=== PATIENT | female | born 1955 | race African-American/Black ===

== ENCOUNTER 2017-05-04 22:40 | Observation (INO) | payer MEDICARE ==
[2017-05-04] MEDS ORDERED: Milk Of Magnesia 30 ML UDCUP ONE (23:10)
[2017-05-04] MEDS ORDERED: Furosemide 40 MG/4 ML VIAL ONE (23:10)
[2017-05-04] MEDS ORDERED: Lidocaine Viscous Sol 2% 15 ml UD Cup ONE (23:10)
[2017-05-04 23:36] LABS: Troponin I Less than 0.010 ng/mL (< 0.028)
[2017-05-04 23:45] LABS: #Eosinphils 0.2 thou/uL (0.0-0.7); #Lymphocytes 3.3 thou/uL (1.20-3.40); #Monocytes 1.1 thou/uL (0.11-0.59); #Neutrophils 6.2 thou/uL (1.40-6.50); %Basophils 0.3 % (0.0-1.0); %Eosinophils 1.4 % (0.0-10.0); %Lymphocytes 30.9 % (21.0-51.0); %Monocytes 10.1 % (0.0-10.0); Hematocrit 41.1 % (36.0-47.0); Red Blood Cell (RBC) Count 4.91 mill/uL (4.20-5.40); White Blood Cell (WBC) Count 10.8 thou/uL (4.8-10.8)
[2017-05-05] MEDS ORDERED: Nitroglycerin 0.4 MG TAB (25 Tab Bottle) ONE (00:01)
[2017-05-05 00:19] LABS: Calcium 9.5 mg/dL (7.8-10.44); Chloride 99 mmol/L (98-107)
[2017-05-05 00:21] LABS: Globulin 3.7 g/dL (2.4-3.5); Protein, Total 7.7 g/dL (6.0-8.3)
[2017-05-05 00:22] LABS: Anion Gap 16 mmol/L (10-20); Bilirubin, Total 0.3 mg/dL (0.2-1.2); Carbon Dioxide 30 mmol/L (23-31)
[2017-05-05 00:23] LABS: Alkaline Phosphatase 80 U/L (40-150)
[2017-05-05 00:24] LABS: BUN (Urea Nitrogen) 7 mg/dL (9.8-20.1); Calc. Creatinine Clearance 0 mL/min (70-130); Estimated GFR-MDRD Greater than 90
[2017-05-05 00:25] LABS: AST (SGOT) 12 U/L (5-34)
[2017-05-05 00:26] LABS: ALT (SGPT) 10 U/L (8-55)
[2017-05-05 01:15] VITALS: BMI 49.7
[2017-05-05 02:22] LABS: Troponin I 0.013 ng/mL (< 0.028)
[2017-05-05 05:24] LABS: Troponin I 0.015 ng/mL (< 0.028)
[2017-05-05] MEDS: Lidocaine 2% Viscous Solution 20 ML, Aluminum & Magnesium Hydroxide 30 ML, Donnatal Eli... SSW SCH ×6 (05:36→09:51)
[2017-05-05] MEDS ORDERED: Mag-Al 1200 mg/1200 mg/30 ML UDCUP PO PRN (08:36)
[2017-05-05] MEDS ORDERED: Bisacodyl 5 MG TAB PO PRN (08:36)
[2017-05-05] MEDS ORDERED: Nitroglycerin 0.4 MG TAB (25 Tab Bottle) SL PRN (08:36)
[2017-05-05] MEDS ORDERED: Senokot 8.6 MG TAB PO PRN (08:36)
[2017-05-05] MEDS ORDERED: traMADol HCl 50 MG TAB PO PRN (08:36)
[2017-05-05] MEDS ORDERED: Acetaminophen 325 MG TAB PO PRN (08:36)
[2017-05-05] MEDS ORDERED: Loratadine 10 MG TAB PO PRN (08:36)
[2017-05-05] MEDS ORDERED: Calcium Carbonate 500 MG ChewTAB PO PRN (08:36)
[2017-05-05] MEDS ORDERED: Benzonatate 100 MG CAP PO PRN (08:36)
[2017-05-05] MEDS ORDERED: cloNIDine HCl 0.1 MG TAB PO PRN (08:36)
[2017-05-05] MEDS ORDERED: Ondansetron HCl/PF 4 MG/2 ML Vial IVP PRN (08:36)
[2017-05-05] MEDS ORDERED: Lorazepam 1 MG TAB PO PRN (08:36)
[2017-05-05] MEDS ORDERED: Hydrochlorothiazide 25 MG TAB PO SCH (09:00)
[2017-05-05] MEDS ORDERED: Furosemide 20 MG TAB PO SCH (09:00)
[2017-05-05] MEDS ORDERED: Lisinopril 10 MG TAB PO SCH (09:00)
--- NOTE | 2017-05-05 09:48 | RAD ---
CHEST ONE VIEW: History: Dyspnea. Pulmonary edema. Comparison: 02-16-10 FINDINGS: Cardiac silhouette is magnified by projection. Pulmonary vasculature is unremarkable. Mediastinum is midline with aortic calcification. There is no lobar consolidation or evidence of pneumothorax. IMPRESSION: 1. No active cardiopulmonary abnormalities are demonstrated. 2. Atherosclerosis. POS: [facility]
[2017-05-05] MEDS ORDERED: NIFEdipine XL 60 MG TAB PO ONE (10:25)
[2017-05-05] MEDS ORDERED: NIFEdipine XL 30 MG TAB PO SCH (11:15)
[2017-05-05] MEDS ORDERED: Potassium Chloride 20 MEQ TAB PO SCH (11:30)
--- NOTE | 2017-05-05 13:02 | CON ---
DATE OF CONSULTATION: 05/05/2017 REQUESTING PHYSICIAN: Dr. Rivera REASON FOR CONSULTATION: Hypertension. REASON FOR ADMISSION: Chest pain. HISTORY OF PRESENT ILLNESS: This 61-year-old female with history of hypertension, osteoarthritis, came to the hospital with chest pain and was found to have hypertension. Creatinine is normal. Nephrology was consulted for uncontrolled hypertension. Blood pressure was in 200s and 190s, no fever or chills. No chest pain, palpitation. No skin rash. PAST MEDICAL HISTORY: Positive for hypertension, osteoarthritis. PAST SURGICAL HISTORY: Hysterectomy. HOME MEDICATIONS: Amlodipine, furosemide, tramadol, lisinopril, hydrochlorothiazide. ALLERGIES: ASPIRIN. SOCIAL HISTORY: No smoking, alcohol or illicit drug abuse. FAMILY HISTORY: No history of any kidney disease. REVIEW OF SYSTEMS: The following complete review of systems was negative, unless otherwise mentioned in the HPI or below: Constitutional: Weight loss or gain, ability to conduct usual activities. Skin: Rash, itching. Eyes: Double vision, pain. ENT/Mouth: Nose bleeding, neck stiffness, pain, tenderness. Cardiovascular: Palpitations, dyspnea on exertion, orthopnea. Respiratory: Shortness of breath, wheezing, cough, hemoptysis, fever or night sweats. Gastrointestinal: Poor appetite, abdominal pain, heartburn, nausea, vomiting, constipation, or diarrhea. Genitourinary: Urgency, frequency, dysuria, nocturia. Musculoskeletal: Pain, swelling. Neurologic/Psychiatric: Anxiety, depression. Allergy/Immunologic: Skin rash, bleeding tendency. PHYSICAL EXAMINATION: GENERAL: This is an obese female in no apparent distress. VITAL SIGNS: Temperature 99.3, pulse 80, respiratory 20, blood pressure 223/105. HEENT: Atraumatic, normocephalic. Oral mucosa is moist. NECK: Supple, no masses. HEART: S1, S2 heard. Rate and rhythm regular. RESPIRATORY: Clear. ABDOMEN: Soft. MUSCULOSKELETAL: No tenderness or edema. DERMATOLOGIC: No skin rash. NEUROLOGIC: Alert and awake. PSYCHIATRIC: Mood and affect normal. LABS: Hemoglobin is 13.0, potassium 3.2, BUN 7, creatinine 0.7. ASSESSMENT AND PLAN: 1. Hypertension, resistant hypertension, currently on multiple medications. Patient reports that h er blood pressure is controlled at home she takes it once a week. Her daughter was also at the beds far[facility] and reports that her blood pressure okay, was elevated just here. She denies any anxiety. The plan is to continue her home medications and monitor blood pressure. 2. Hypokalemia, most likely from diuresis. 3. Obesity, counseled. 4. Edema, controlled. Plan is to change amlodipine to Procardia, she reports edema with amlodipine. She is on Lasix, too. Continue home medications. We will change amlodipine to Procardia and closely monitor blood press ure, limit salt in the diet. We will follow. Thank you for the consultation.
[2017-05-05] MEDS: Enoxaparin Sodium 40 MG/0.4 ML SYRINGE SC SCH (14:27)
[2017-05-05] MEDS: Bupropion 100 MG SR TAB PO SCH (14:28)
[2017-05-05] MEDS ORDERED: NIFEdipine XL 60 MG TAB PO SCH (14:30)
--- NOTE | 2017-05-05 14:45 | HP ---
DATE OF ADMISSION: 05/05/2017 PRIMARY CARE PHYSICIAN: Dr. Larry. CHIEF COMPLAINT: Upper abdominal and lower chest pain in the center. HISTORY OF PRESENTING ILLNESS: Ms. Smith is a 61-year-old -Lao female with past me dical history of hypertension, who presented to the emergency room with the above-mentioned complain t. History is mainly obtained by the patient herself and the electronic medical records have been r eviewed. The patient was last seen by myself last year for complaints of uncontrolled hypertension. At that time, her medications were adjusted and she was also seen by stone breaker and renal workup was done, which was unremarkable. Today, the patient came to the emergency room complaining of feeling poorly for the last few days. She states she has been having some stomach upset with some vomiting, diarrhea, and abdominal pain f or the last day or so. She states that her stomach pain is not radiating up in her chest under her sternal edge. She also reports some burning and belching and some dry heaving with a little bit of vomiting. She denies any shortness of breath. She does feel intermittently hot and cold but denies any fevers. She denies any hematochezia or melena. She denies any dysuria, frequency or urgency. She presented to the ER with the symptoms and was found to be extremely hypertensive with blood pre ssure of 223/105. The patient reports that she is compliant with her lisinopril and hydrochlorothiazide, but has stopp ed taking all the other medications as told by her primary care physician. She reports that her blo od pressure is \\\\"okay\\\\" and when I asked her, she says it is normally around systolic in the 150s. In the emergency room, her initial workup included a 12-lead EKG, which did not show any arrhythmias . She had first degree AV block, left atrial enlargement and prolonged QT. No chest x-ray was done and no other imaging studies were done. She received aspirin, sublingual nitroglycerin, amlodipine , Lasix IV and GI cocktail and was sent to the floor for admission for \\\\"chest pain workup.\\\\" Her cardiac enzymes were drawn and have been negative x3. The rest of her blood work is rather unremar kable. She does have a low potassium at 3.2. PAST MEDICAL HISTORY: 1. Hypertension. 2. Morbid obesity. 3. Dyslipidemia. PAST SURGICAL HISTORY: Include right and left total knee replacement, hysterectomy, hernia repair. ALLERGIES: ASPIRIN. PERSONAL HISTORY/SOCIAL HISTORY: No history of drug, tobacco or alcohol abuse. FAMILY HISTORY: Mother at the age of 84 years. She had diabetes and hypertension. Father d of massive CVA at the age of 63 years. CURRENT HOME MEDICATIONS: Wellbutrin 100 mg daily, amlodipine 5 mg daily, Lasix 20 mg daily, lisino pril/hydrochlorothiazide 20/12.5 mg daily, tramadol as needed. The patient reports she is only azi ng lisinopril/hydrochlorothiazide at this time, which she has not taken for the last few days due to illness. REVIEW OF SYSTEMS: The following complete review of systems was negative, unless otherwise mention ed in the HPI or below: CONSTITUTIONAL: Weight loss or gain, ability to conduct usual activities. SKIN: Rash, itching. EYES: Double vision, pain. ENT/MOUTH: Nose bleeding, neck stiffness, pain, tenderness. CARDIOVASCULAR: Palpitations, dyspnea on exertion, orthopnea. RESPIRATORY: Shortness of breath, wheezing, cough, hemoptysis, fever or night sweats. GASTROINTESTINAL: Poor appetite, abdominal pain, heartburn, nausea, vomiting, constipation, or diar jessenia. GENITOURINARY: Urgency, frequency, dysuria, nocturia. MUSCULOSKELETAL: Pain, swelling. NEUROLOGIC/PSYCHIATRIC: Anxiety, depression. ALLERGY/IMMUNOLOGIC: Skin rash, bleeding tendency. LABORATORY DATA: CBC shows WBCs 10.8 with 37% neutrophils, hemoglobin 13, platelet 232. Serum chem istry showed potassium of 3.2. Troponin less than 0.010 and than 0.013 and than 0.015. Liver enzym es are within normal limits. Chest x-ray ordered by myself and is reviewed by myself. She has some evidence of atherosclerosis but no pulmonary consolidation or pulmonary vascular congestion. PHYSICAL EXAMINATION: VITAL SIGNS: Most recent vital signs include blood pressure 140/67, temperature 98.6, pulse of 79, respirations 16, saturating 96% on room air. GENERAL: No acute distress. She does appear somewhat uncomfortable due to the abdominal pain going into her chest. Otherwise, awake, alert, oriented x3. HEENT: Mucous membrane is moist and pink. No oropharyngeal exudate or erythema. Head is normoceph alic, atraumatic. Pupils equal, reactive to light and accommodation. Extraocular movements intact. NECK: Supple without any lymphadenopathy, JVD or bruit. CHEST: Clear to auscultation without any wheezing, rales or rhonchi. Rate and rhythm is regular wi thout any murmur, rubs or gallops. ABDOMEN: Soft, nontender, nondistended with positive bowel sounds. EXTREMITIES: Free of any cyanosis, clubbing, or edema. NEUROLOGIC: Nonfocal. SKIN: Free of any rashes or bruises. Feels warm and dry to touch. VASCULAR: +2 pedal pulses felt bilaterally. IMPRESSION AND PLAN: 1. Chest pain. Most likely, this is secondary to uncontrolled hypertension. Cardiac enzymes have been negative. EKG does not show any acute ST or T-wave changes to suggest acute coronary syndrome. The patient had an echocardiogram done in 2013, which showed normal systolic function. At this ti me, we will go ahead and repeat the echocardiogram, but I highly doubt the patient is suffering acut e coronary syndrome. She is tender to palpation in the upper epigastric and lower sternocostal saira on. At this time, I will go ahead and order CT aortic dissection protocol given the hypertension an d the pain. However, she is completely hemodynamically stable and it is clinically less likely. We will also order a CT of the abdomen and pelvis to rule out any abdominal causes of the pain. Most likely, she has gastritis from gastrointestinal illness. We will also check a lipase, though the liz peña's abdominal exam is rather benign and the probability of pancreatitis is rather low. We will also check a urinalysis to rule out urinary tract infection as a cause. 2. Uncontrolled hypertension and hypertensive urgency. At this time, she will be restarted on isabel nopril, but we will hold Lasix and hydrochlorothiazide given a propensity for hypokalemia [facility] and this admission also. We will reconsult Nephrology, Dr. Lara, who has seen her in the past. Echocardiogram has been ordered as above. Her medications will be adjusted and I have c ounseled her about the need to stay compliant with her medication even though she thinks that her bl ood pressure is well controlled. She will be monitored on telemetry unit. 3. Abdominal pain. We will check a CT scan of her abdomen and pelvis. Most likely, this is viral gastroenteritis. She has no recent use of antibiotics to think infectious causes like Clostridium d ifficile. 4. Hypokalemia. We will replete and recheck. Hold hydrochlorothiazide and Lasix for now. The pat ient is euvolemic. 5. Code status: FULL CODE. Heart healthy diet, walking program and p.r.n. medications. DISPOSITION: The patient is currently being admitted under observation status for chest pain, abdom inal pain, uncontrolled hypertension and hypertensive urgency. Further management will depend upon her clinical course.
[2017-05-05] MEDS ORDERED: Iopamidol 370 76% 100 ML VIAL ONE (15:00)
[2017-05-05 15:02] LABS: Bilirubin Negative (Negative); Blood, Urine Negative (Negative); Glucose, Urine (Dipstick) Negative (Negative); Ketone, Urine Negative (Negative); Nitrite Negative (Negative); Protein, Urine (Dipstick) Negative (Neg-Trace); Urobilinogen 0.2 mg/dL (0.2-1.0)
[2017-05-05 15:11] LABS: Bacteria/HPF Rare-Few HPF (None Seen); Hyaline Casts/LPF 0-3 HYALINE CAST LPF (0-3 Hyaline); RBC/HPF 0-3 HPF (0-3); Squamous Epithelial 0-3 HPF (0-3); WBC/HPF 0-3 HPF (0-3)
--- NOTE | 2017-05-05 15:58 | CT ---
CT AORTIC DISSECTION PROTOCOL: HISTORY: Chest pain. Hypertension. COMPARISON: None. TECHNIQUE: CT angiogram of the chest and abdomen performed after the intravenous administration of contrast. T hree-D rendering was provided. FINDINGS: A few foci of air trapping are noted throughout the lungs. There is a small nodule in the lateral s egment right lower lobe measuring under 6 mm. Calcified granuloma of the right hilum. No proximal segmental pulmonary arterial filling defect. Pulmonary trunk size upper limits of erich l. No aneurysm of the thoracic aorta nor dissection. No penetrating atherosclerotic ulcer. Abdominal aorta is also without dilatation. Heart size is enlarged. Moderate coronary artery calcifications. Small sliding hiatal hernia. There is cholelithiasis. Celiac trunk and superior mesenteric arteries are patent. The kidneys are unremarkable as well as t he adrenal glands. The liver is normal. No hydronephrosis. Visualized portion of the appendix appears normal. Mild low-grade submucosal edema of the ascending colon and transverse colon. Although incompletely evaluated, there appears to be a lipoma of the descending colon series 2, imag e 152. There appears to be a vessel coursing through this. Moderate to severe facet arthrosis throughout the lumbar spine. Moderate degenerative disk space di sease throughout the lumbar spine. IMPRESSION: 1. No aortic aneurysm or dissection. 2. Mild cardiomegaly and moderate atherosclerotic calcifications in the coronary arteries. 3. Pulmonary trunk size upper limits of normal with numerous areas of air trapping. 4. Cholelithiasis without cholecystitis. 5. Incidental node of likely a lipoma of the descending colon. Nonemergent GI followup recommended . 6. Mild submucosal edema in the ascending colon and also some of the transverse colon can be seen w ith colitis. This could be infectious or inflammatory. 7. Severe osteoarthritic disease of the lumbar spine. POS: [facility]
[2017-05-05] MEDS: HYDROcodone/Acetaminophen 5/325 mg Tablet PO PRN (19:37)
[2017-05-05 23:16] LABS: Troponin I Less than 0.010 ng/mL (< 0.028)
[2017-05-06 05:26] LABS: #Eosinphils 0.1 thou/uL (0.0-0.7); #Lymphocytes 2.4 thou/uL (1.20-3.40); #Monocytes 0.7 thou/uL (0.11-0.59); #Neutrophils 5.1 thou/uL (1.40-6.50); %Basophils 0.2 % (0.0-1.0); %Eosinophils 0.8 % (0.0-10.0); %Monocytes 8.8 % (0.0-10.0); Hematocrit 38.2 % (36.0-47.0); Mean Platelet Volume 7.5 fL (7.4-10.4); Red Blood Cell (RBC) Count 4.58 mill/uL (4.20-5.40); White Blood Cell (WBC) Count 8.4 thou/uL (4.8-10.8)
[2017-05-06 05:52] LABS: Anion Gap 14 mmol/L (10-20); BUN (Urea Nitrogen) 8 mg/dL (9.8-20.1); Calc. Creatinine Clearance 198 mL/min (70-130); Calcium 8.9 mg/dL (7.8-10.44); Carbon Dioxide 29 mmol/L (23-31); Chloride 97 mmol/L (98-107); Estimated GFR-MDRD Greater than 90
[2017-05-06] MEDS: Bupropion 100 MG SR TAB PO SCH (08:23)
[2017-05-06] MEDS: NIFEdipine XL 60 MG TAB PO SCH (08:24)
--- NOTE | 2017-05-06 09:03 | PRG ---
DATE OF CONSULTATION: 05/06/2017 SUBJECTIVE: Patient was seen and examined at bedside and overnight events noted. Patient denies an y shortness of breath or chest pain or palpitation. No history of nausea or vomiting or diarrhea or fever or chills or cramps. OBJECTIVE: GENERAL: This is a well-built female in no apparent distress. VITAL SIGNS: Temperature 98.7, pulse 72, respiratory rate 18, blood pressure 191/81 before the medi cation given. HEENT: Atraumatic, normocephalic. Oral mucosa is moist. NECK: Supple. CARDIOVASCULAR: S1 and S2 heard, rate and rhythm regular. RESPIRATORY: Clear to auscultation. GASTROINTESTINAL: Abdomen is soft. MUSCULOSKELETAL: No tenderness, no edema. DERMATOLOGIC: No skin rash. NEUROLOGIC: Alert and awake and oriented X3. No focal neurologic deficits. Moving all the extremi ties. PSYCHIATRIC: Mood and affect normal. LABORATORY DATA: Potassium is 3.5, BUN is 48, creatinine 0.7. ASSESSMENT AND PLAN: 1. Hypertension, seems like responding to Procardia. Blood pressure was high today. Before the me dications, I advised the nurse to recheck blood pressure after today morning dose and will follow. 2. Hyperkalemia better. Replace and monitor. 3. Obesity. 4. Edema, controlled. Plan is to continue to monitor blood pressure on current medications and we will adjust as needed.
--- NOTE | 2017-05-06 11:33 | PDOC.PN ---
- Subjective Encounter Start Date: 05/06/17 Encounter Start Time: 11:31 Subjective: still c/o abdominal pian going to lower chest -: nursing report 5 beats of V-tach up to HR 170.pt asymptomatic -: denies any SOB/palpitations - Objective MAR Reviewed: Yes Vital Signs & Weight: Vital Signs (12 hours) Temp Pulse Resp BP BP Pulse Ox 05/06/17 09:30 73 164/77 H 05/06/17 08:24 73 191/81 H 05/06/17 07:25 98.7 F 73 20 191/81 H 93 L 05/06/17 04:48 99.0 F 73 16 125/58 L 93 L 05/06/17 03:13 94 L 05/05/17 23:38 98.7 F 68 22 H 133/63 94 L Weight Admit Weight 336 lb 12.8 oz Weight 336 lb 12.8 oz I&O: 05/05/17 05/06/17 05/07/17 06:59 06:59 06:59 Intake Total 2310 120 Output Total 4135 150 Balance -1825 -30 Result Diagrams: 05/06/17 05:06 05/06/17 05:06 Radiology Reviewed by me: Yes (CT-no aortic dissection.mild colitis.cholelithiasis.no cholecystitis) Phys Exam - Physical Examination Constitutional: NAD HEENT: PERRLA, moist MMs, sclera anicteric, oral pharynx no lesions Neck: no nodes, no JVD, supple, full ROM Respiratory: no wheezing, no rales, no rhonchi, clear to auscultation bilateral Cardiovascular: RRR, no significant murmur Gastrointestinal: soft, non-tender, no distention, positive bowel sounds Musculoskeletal: no edema, pulses present Neurological: non-focal, normal sensation, moves all 4 limbs Psychiatric: normal affect, A&O x 3 Skin: no rash Dx/Plan (1) Hypertensive urgency Code(s): I16.0 - HYPERTENSIVE URGENCY Status: Acute (2) Abdominal pain Code(s): R10.9 - UNSPECIFIED ABDOMINAL PAIN Status: Acute Qualifiers: Abdominal location: epigastric Qualified Code(s): R10.13 - Epigastric pain (3) Chest pain Code(s): R07.9 - CHEST PAIN, UNSPECIFIED Status: Resolved Comment: naveen referred pain from Abdomen (4) Hypokalemia Code(s): E87.6 - HYPOKALEMIA Status: Resolved Comment: taken off of Diuretics (5) Obesity Code(s): E66.9 - OBESITY, UNSPECIFIED Status: Chronic Qualifiers: Obesity type: due to excess calories Obesity classification: adult class 3 (BMI >= 40) Body mass index: BMI 45.0-49.9 - Plan out of bed/ambulate, DVT proph w/SCDs cardiac enzymes negative.EKG w/o ACs chnages.Naveen HTN releated -: Will consult GS for need for lap titi. -: BP still high. add Hydralazine. may need BB if V-tach recurres. -: ECHO results pending. -: DC home if no GB Sx and BP better controlled * . Review of Systems - Review of Systems Constitutional: Malaise. negative: Fever, Chills, Sweats, Weakness, Other Respiratory: negative: Cough, Dry, Shortness of Breath, Hemoptysis, SOB with Excertion, Pleuritic Pain, Sputum, Wheezing Cardiovascular: negative: Chest Pain, Palpitations, Orthopnea, Paroxysmal Noc. Dyspnea, Edema, Light Headedness, Other Gastrointestinal: Abdominal Pain. negative: Nausea, Vomiting, Diarrhea, Constipation, Melena, Hematochezia, Other Genitourinary: negative: Dysuria, Frequency, Incontinence, Hematuria, Retention , Other Musculoskeletal: negative: Neck Pain, Shoulder Pain, Arm Pain, Back Pain, Hand Pain, Leg Pain, Foot Pain, Other Neurological: negative: Weakness, Numbness, Incoordination, Change in Speech, Confusion, Seizures, Other - Medications/Allergies Allergies/Adverse Reactions: Allergies Allergy/AdvReac Type Severity Reaction Status Date / Time aspirin Allergy Severe Swollen Verified 05/05/17 01:21 Lips Medications: Current Medications Acetaminophen (Tylenol) 650 mg PO Q4H PRN PRN Reason: Headache/Fever or Pain Hydrocodone Bitart/Acetaminophen ([place] 5/325) 1 tab PO Q4H PRN PRN Reason: Moderate Pain (4-6) Last Admin: 05/05/17 19:37 Dose: 1 tab Al Hydroxide/Mg Hydroxide (Maalox) 30 ml PO Q6H PRN PRN Reason: Heartburn or Indigestion Last Admin: 05/05/17 14:45 Dose: 30 ml Benzonatate (Tessalon) 100 mg PO Q4H PRN PRN Reason: Cough Bisacodyl (Dulcolax) 10 mg PO DAILYPRN PRN PRN Reason: Constipation Bupropion HCl (Wellbutrin Sr) 100 mg PO DAILY [facility] Last Admin: 05/06/17 08:23 Dose: Not Given Calcium Carbonate (Tums) 1,000 mg PO Q4H PRN PRN Reason: Heartburn or Indigestion Clonidine HCl (Catapres) 0.1 mg PO Q4H PRN PRN Reason: Systolic BP > 160 Last Admin: 05/05/17 19:37 Dose: 0.1 mg Enoxaparin Sodium (Lovenox) 40 mg SC 0900 [facility] Last Admin: 05/05/17 14:27 Dose: 40 mg Hydralazine HCl (Apresoline) 10 mg SLOW IVP Q4H PRN PRN Reason: SBP>170 Last Admin: 05/05/17 15:12 Dose: 10 mg Hydralazine HCl (Apresoline) 25 mg PO TID [facility] Last Admin: 05/06/17 09:30 Dose: 25 mg Loratadine (Claritin) 10 mg PO DAILYPRN PRN PRN Reason: Sinus Symptoms Lorazepam (Ativan) 1 mg PO Q4H PRN PRN Reason: Anxiety/Agitation Nifedipine (Procardia Xl) 60 mg PO DAILY [facility] Last Admin: 05/06/17 08:24 Dose: 60 mg Nitroglycerin (Nitrostat) 0.4 mg SL Q5MIN PRN PRN Reason: Chest Pain Last Admin: 05/05/17 22:50 Dose: 0.4 mg Ondansetron HCl (Zofran) 4 mg IVP Q6H PRN PRN Reason: Nausea/Vomiting Pantoprazole Sodium (Protonix) 40 mg PO DAILY [facility] Last Admin: 05/06/17 08:25 Dose: 40 mg Senna (Senokot) 2 tab PO HSPRN PRN PRN Reason: Constipation Sodium Chloride (Flush - Normal Saline) 10 ml IVF Q12HR [facility] Last Admin: 05/06/17 09:40 Dose: 10 ml Sodium Chloride (Flush - Normal Saline) 10 ml IVF PRN PRN PRN Reason: Saline Flush Tramadol HCl (Ultram) 50 mg PO Q4H PRN PRN Reason: Moderate Pain (4-6)
[2017-05-06] MEDS: Enoxaparin Sodium 40 MG/0.4 ML SYRINGE SC SCH (13:30)
[2017-05-06] MEDS: HYDROcodone/Acetaminophen 5/325 mg Tablet PO PRN ×2 (13:34→20:21)
--- NOTE | 2017-05-06 13:47 | CON ---
DATE OF CONSULTATION: 05/06/2017 CHIEF COMPLAINT: Epigastric pain. HISTORY OF PRESENT ILLNESS: The patient is a 61-year-old female with a 3-4 day history of midepigas tric pain associated with nausea. She had a CT scan showing cholelithiasis. PAST MEDICAL HISTORY: Morbid obesity, hypertension. PAST SURGICAL HISTORY: She has had bilateral total knee replacement with total abdominal hysterecto my. MEDICATIONS: Lisinopril/hydrochlorothiazide. SOCIAL HISTORY: She is single, unemployed. No tobacco, no alcohol. FAMILY HISTORY: Diabetes. ALLERGIES: ASPIRIN. PHYSICAL EXAMINATION: VITAL SIGNS: Temperature 97.6, pulse 76, blood pressure 148/68. GENERAL: She is an obese female in no apparent distress. HEENT: No jaundice. LUNGS: Clear. HEART: Regular rate and rhythm. ABDOMEN: Tender to palpation in the midepigastrium. Really, no peritoneal signs. No palpable mass es, no hernias. IMAGING AND LABORATORY DATA: CT scan shows cholelithiasis. Liver function tests normal. White cou nt 8.4, hemoglobin and hematocrit 12 and 38. ASSESSMENT: Severe biliary colic. PLAN: Laparoscopic cholecystectomy. CONSENT: I have discussed the planned procedure as well as risk of bleeding, infection, injury to b ile duct, injury to bowel, need to open. She understands and gives informed consent.
[2017-05-07] MEDS ORDERED: Fentanyl 100 MCG/2 ML VIAL ONE (07:01)
[2017-05-07] MEDS: Enoxaparin Sodium 40 MG/0.4 ML SYRINGE SC SCH (07:15)
[2017-05-07] MEDS ORDERED: Bupivacaine HCl 0.5%/Epinephrine 1:200,000/PF 30 ml Vial ONE (07:37)
[2017-05-07] MEDS ORDERED: Sodium Chloride 0.9% 100 ML ONE (07:41)
[2017-05-07] MEDS ORDERED: Glycopyrrolate 0.2 MG/ML 5 ML SYRINGE ONE (08:01)
[2017-05-07] MEDS ORDERED: Ondansetron HCl/PF 4 MG/2 ML Vial ONE (08:01)
[2017-05-07] MEDS ORDERED: Succinylcholine Chloride 20 MG/ML 10 ml SYRINGE FS ONE (08:01)
[2017-05-07] MEDS ORDERED: Propofol 200 MG/20 ML VIAL ONE (08:01)
[2017-05-07] MEDS ORDERED: Ketorolac Tromethamine 30 MG/ML VIAL ONE (08:01)
[2017-05-07] MEDS ORDERED: Lidocaine 1% PF 5 ML VIAL ONE (08:01)
[2017-05-07] MEDS ORDERED: Dexamethasone 20 MG/5 ML VIAL ONE (08:01)
[2017-05-07] MEDS ORDERED: Promethazine HCl 25 MG/ML VIAL IM PRN (08:24)
[2017-05-07] MEDS ORDERED: Meperidine HCl/PF 25 MG/ML VIAL SLOW IVP PRN (08:24)
[2017-05-07] MEDS ORDERED: Ondansetron HCl/PF 4 MG/2 ML Vial IVP PRN (08:24)
[2017-05-07] MEDS ORDERED: Promethazine HCl 25 MG/ML VIAL SLOW IVP PRN (08:24)
[2017-05-07] MEDS ORDERED: HYDROcodone/Acetaminophen 7.5/325 mg Tablet PO PRN ×2 (10:05)
[2017-05-07] MEDS: Bupropion 100 MG SR TAB PO SCH (10:07)
[2017-05-07] MEDS: NIFEdipine XL 60 MG TAB PO SCH (10:30)
--- NOTE | 2017-05-07 10:46 | OP ---
PREOPERATIVE DIAGNOSIS: Symptomatic cholelithiasis. SURGEON: Jose Daniel Perez M.D. PROCEDURE PERFORMED: Laparoscopic cholecystectomy. INDICATIONS: The patient is a 61-year-old female with right upper quadrant pain and was found to shaikh ve gallstones. FINDINGS: Large 1.5 cm gallstones, some thickening of the gallbladder wall. DESCRIPTION OF THE PROCEDURE: After informed consent was obtained, the patient was taken to the ope rating room and given general endotracheal anesthesia, placed in the supine position. The abdomen w as prepped and draped in the usual fashion. Local anesthesia infiltrated subcutaneously and deep. Subumbilical incision was performed. The subcu divided sharply. Fascia grasped and two stay suture s of 0 Vicryl placed to either side of midline. Midline incised. Digital palpation revealed no loc al adhesions. A blunt 10-12 mm trocar inserted. Pneumoperitoneum was created to a pressure of 15 m mHg. A 0-degree laparoscope inserted. Under direct vision, three 5 mm ports placed subcostally. T he gallbladder grasped and advanced superiorly. Peritoneum lysed distally revealed cystic duct and artery and the critical view. The duct was triply ligated. The artery triply ligated and divided a nd the gallbladder was removed from its fossa utilizing electrocautery. It was placed in an Endosac and removed from the abdomen in the Endosac. Hemostasis was assured. Trocars and retractors remov ed. The fascia closed with interrupted 2-0 Vicryl suture. Skin closed with interrupted 4-0 Rapide. Dermabond applied. The patient tolerated the procedure well and transferred to recovery in good c ondition. Sponge and needle count verified correct x2.
--- NOTE | 2017-05-07 11:18 | PRG ---
DATE OF SERVICE: 05/07/2017 SUBJECTIVE: This is a 61-year-old female being seen for hypertension. Patient denies any nausea, v omiting or chest pain. PHYSICAL EXAMINATION: GENERAL: Patient is awake, alert. VITAL SIGNS: Afebrile, pulse 73, breathing at 16, blood pressure 153/80. GENERAL APPEARANCE AND MENTAL STATUS: Fair. HEAD/NECK: Normocephalic. Atraumatic. EYES: EOMI. No deformity. EARS: Clear. No ulcers. NOSE: Intact. No lesions. MOUTH: Clear. No discharge. THROAT: Clear. No exudate. LUNGS: Clear. No crackles. CARDIAC: S1, S2. No rub. ABDOMEN: Benign. BS+. GENITALIA/RECTUM: Ramos absent. BACK/EXTREMITIES: Edema 0+ Ulcer- NEUROLOGICAL: Alert and motor intact. SKIN: Rash- Bruise- LYMPHATICS: Edema- Ulcer- LABORATORY DATA: Show creatinine 0.72. ASSESSMENT AND RECOMMENDATIONS: 1. Stage 1 chronic kidney disease, stable. 2. Hypertension, stable. 3. Hypokalemia, improved. 4. Hypertension. We will order plasma Renin activity and aldosterone level and the patient can fol low up with Dr. Lara as an outpatient.
[2017-05-07 15:36] VITALS: BP 143/78; TEMP 97.3
--- NOTE | 2017-05-07 18:50 | DIS ---
DATE OF ADMISSION: 05/05/2017 DATE OF DISCHARGE: 05/07/2017 CONDITION AT THE TIME OF DISCHARGE: Stable and improved. DISCHARGE DIAGNOSES: 1. Chest pain-acute coronary syndrome ruled out as well as aortic dissection ruled out. 2. Hypertensive urgency, improved. 3. Essential hypertension. 4. Biliary colic, status post laparoscopic cholecystectomy. PRIMARY CARE PHYSICIAN: Dr. Larry. DISCHARGE MEDICATIONS: Bupropion 100 mg daily, tramadol as needed, [place] as needed, hydralazine 25 mg p.o. t.i.d., and nifedipine XL 60 mg daily. CONSULTATIONS: Include; 1. Nephrology doctors, Dr. Lara and Dr. Bennett. 2. General Surgery, Dr. Perez. PROCEDURES DONE IN THE HOSPITAL: Include; 1. CT with aortic dissection protocol as well as CT of the abdomen. CT of the chest is negative fo r any aortic aneurysm or dissection. She has moderate atherosclerotic calcifications in the coronar ies. She did have cholelithiasis without cholecystitis on the CT scan of the abdomen with mild subm ucosal edema and ascending and transverse colon consistent with colitis, severe osteoarthritic lumba r spinal disease was also seen. 2. Transthoracic echocardiogram, which shows preserved ejection fraction of 70% -75% with mild left ventricular hypertrophy and left atrial dilatation, otherwise unremarkable. 3. Laparoscopic cholecystectomy on 05/07/2017. ADMISSION HISTORY: Ms. Smith is a 61-year-old -[place] female with past medical histor y of difficult to control hypertension, who presented to the emergency room for complaints of upper abdominal and lower chest pain. Upon presentation, her blood pressure was 223/105. She also had co mplaints of some stomach upset with vomiting, diarrhea, and abdominal pain for the few days prior to presentation. In the emergency room, her initial work was unremarkable. She had immediate interve ntion for the hypertension and was admitted initially for chest pain workup and ACS rule out. Cardi ac enzymes were negative x3. Please see admission history and physical dictated by myself for furth er details. HOSPITAL COURSE: The patient's cardiac enzymes and EKG remained unremarkable. The patient was tend er to palpation in the epigastric region as well as lower chest region, likelihood of ACS was very l ow. However, given her pain and uncontrolled hypertension; CT with aortic dissection protocol was d one. This is negative for same. It did show cholelithiasis without cholecystitis and given the pat ient's symptoms, it was thought that this is secondary to biliary colic. At this time, General Surg vj was consulted and Dr. Perez saw the patient. He agreed that her symptoms are likely originating from biliary colic, rather than ACS or cardiac causes. She underwent laparoscopic cholecystectomy earlier this morning and has been doing fairly well since then. She is back on a normal diet and is able to tolerate it very well. Her pain is under control. With regards to her uncontrolled hypertension, the patient reported that she has not been using her medications as instructed. Nephrology was consulted as Dr. Lara has seen her in the past with guerrero diallo to the same. Her medications were adjusted. She was taken off of diuretics because of hypoka lemia as demonstrated in the past as well. At this time, she is stable on Procardia and hydralazine dosing. She will follow up with Nephrology as well as primary care physician as an outpatient. Re renan levels and aldosterone levels were drawn prior to discharge and will be followed up by Nephrolog y in the clinic. Please note that these tests were done the last time she was here. Her Renin and aldosterone levels on 01/18/2016 were within normal range. The patient was seen and examined prior to discharge and is eager to go home and is cleared by both Nephrology and General Surgery for discharge. PHYSICAL EXAMINATION: This morning include; VITAL SIGNS: Temperature 97.3, pulse of 81, respirations 16, saturating 96% on room air, blood pres sure 143/78. GENERAL: No acute distress, awake, alert, oriented x3. CHEST: Clear to auscultation without any wheezing, rales, or rhonchi. Rate and rhythm is regular w ithout any murmur, rubs, or gallops. ABDOMEN: Soft, nontender, nondistended. Surgical site looks clean without any dehiscence, discharg e or bleeding. LABORATORY EXAMINATION: Serum chemistries are unremarkable. Blood sugar 127. Serial cardiac enzym es within normal range. Lipase 11. CBC shows WBCs at 8.4, hemoglobin 12.1, platelet count of 236,0 00. Urinalysis had trace leukocyte esterase and urine culture is negative at this time. No antibio tics are being prescribed as the patient has no symptoms. She will follow with her primary care physician. Discharge plan was discussed with the patient who verbalizes understanding.
--- NOTE | 2017-05-08 17:51 | EKG ---
Test Reason : CHEST PAIN Blood Pressure : / mmHG Vent. Rate : 070 BPM Atrial Rate : 070 BPM P-R Int : 216 ms QRS Dur : 094 ms QT Int : 440 ms P-R-T Axes : 068 022 072 degrees QTc Int : 475 ms Sinus rhythm with 1st degree A-V block Nonspecific ST and T wave abnormality Prolonged QT Abnormal ECG When compared with ECG of 04-MAY-2017 22:47, (Unconfirmed) No significant change was found Confirmed by BENNETT FREGOSO ([id number]) on 05/08/2017 5:50:57 PM Referred By: MICHAEL Confirmed By:BENNETT FREGOSO
== END 2017-05-07 16:51 | disposition home or self-care (01) ==
LOC: ERS 22:40 → 2SW 23:55
PROVIDERS: ADMIT Internal Medicine; ATTEND Internal Medicine
PROC: 0FT44ZZ Resection of Gallbladder, Percutaneous Endoscopic Approach (ICD-10-PCS; principal; 2017-05-04)
DX: K80.10 Calculus of gallbladder with chronic cholecystitis without obstruction (principal); R07.9 Chest pain, unspecified; I10 Essential (primary) hypertension; I16.0 Hypertensive urgency; E78.6 Lipoprotein deficiency; E78.5 Hyperlipidemia, unspecified; E66.01 Morbid (severe) obesity due to excess calories; Z88.6 Allergy status to analgesic agent; Z68.42 Body mass index [BMI] 45.0-49.9, adult; Z79.899 Other long term (current) drug therapy; Z96.653 Presence of artificial knee joint, bilateral; Z90.710 Acquired absence of both cervix and uterus; Z90.79 Acquired absence of other genital organ(s); Z90.722 Acquired absence of ovaries, bilateral; Z98.890 Other specified postprocedural states; Z83.3 Family history of diabetes mellitus; Z82.49 Family history of ischemic heart disease and other diseases of the circulatory system; Z82.3 Family history of stroke
CPT/HCPCS: 47562; 71010; 71275; 80048; 80053; 81001; 82088; 82553 ×2; 83690; 84484 ×3; 85025 ×2; 88304; 93005 ×2; 93306; 96372 ×2; 96374; 96375; 96376; 97139 ×3; 99285; G0378; 36415; 93010; A4216; J0131; J0360; J0670; J0694; J1100; J1650; J1885; J1940; J2001; J2405; J2704; J3010; J7050

== ENCOUNTER 2018-04-26 14:24 | Outpatient (CLI) | payer MEDICARE | END 2018-04-26 14:25 | disposition home or self-care (01) | LOC: BICMAMMO 14:24 | PROVIDERS: ATTEND Family Medicine | DX: Z12.31 Encounter for screening mammogram for malignant neoplasm of breast (principal) | CPT/HCPCS: 77063; 77067 ==

== ENCOUNTER 2018-06-02 07:34 | Day surgery (SDC) | payer MEDICARE ==
[2018-06-01 16:06] VITALS: BMI 47.8
[2018-06-02] MEDS ORDERED: Midazolam HCl 2 mg/2 ml Vial ONE (09:12)
[2018-06-02] MEDS ORDERED: Fentanyl 100 MCG/2 ML VIAL ONE (09:12)
--- NOTE | 2018-06-02 10:45 | OP ---
DATE OF PROCEDURE: 06/02/2018 SURGEON: Toney Aragon M.D. DIRECTOR SURGICAL SURGEON: None. PROCEDURE: Colonoscopy with biopsies and snare polypectomy. INDICATION: 1. Chronic diarrhea. 2. Lower abdominal pain. MEDICATIONS: See anesthesia record. FINDINGS: After discussion of the risks, benefits and alternatives of the procedure, informed consen t was obtained and witnessed. Pre-endoscopic cardiopulmonary examination was satisfactory. Timeout was performed before sedation was achieved. Sedation was achieved with anesthesia assistance in the endoscopy unit. Digital rectal exam was performed which was unremarkable. A Pentax adult colonoscop e was inserted into the anus and passed forward to the cecum in the usual fashion. The cecal base wa s identified by the appendiceal orifice as well as the ileocecal valve. The terminal ileum was intub ated and the ileal mucosa appeared normal. The colonoscope was then slowly withdrawn in a gradual an d circumferential manner with careful examination of the entire colonic mucosa. The quality of the p rep was good. The colonic mucosa appeared normal throughout. Random biopsies were obtained from nor mal appearing colon in the right colon and the left colon for histology. There was a 3 mm sessile po lyp in the ascending colon which was completely removed with hot snare and retrieved for pathology. There was an approximately 7 mm pedunculated polyp in the sigmoid colon which was removed with a hot snare and retrieved for pathology and there was a 2 mm polyp in the rectum which was completely remov ed with hot snare and retrieved for pathology. The remainder of the colonoscopy was normal. Retrofl exion in the rectum was normal. The colonoscope was completely withdrawn and the patient allowed to recover. The patient tolerated the procedure well. There were no immediate post-procedure complicat ions. IMPRESSION: 1. A 3 mm ascending colon polyp, completely removed with hot snare and retrieved for pathology. 2. A 7 mm sigmoid colon polyp, completely removed with hot snare and retrieved for pathology. 3. A 2 mm rectal polyp, completely removed with hot snare and retrieved for pathology. 4. Otherwise, normal colonoscopy to the terminal ileum, with random colon biopsies obtained. RECOMMENDATIONS: 1. Follow up pathology on the colon polyps and random colon biopsies. 2. Surveillance colonoscopy interval to depend on pathology results. 3. The patient can take Imodium as needed for diarrhea. 4. We will have her follow up in clinic in about 3-4 weeks.
== END 2018-06-02 11:02 | disposition home or self-care (01) ==
LOC: SDC 07:34
PROVIDERS: ATTEND Internal Medicine
PROC: 0DBG8ZX Excision of Left Large Intestine, Via Natural or Artificial Opening Endoscopic, Diagnostic (ICD-10-PCS; principal; 2018-06-02)
PROC: 0DBF8ZX Excision of Right Large Intestine, Via Natural or Artificial Opening Endoscopic, Diagnostic (ICD-10-PCS; 2018-06-02)
PROC: 0DBK8ZX Excision of Ascending Colon, Via Natural or Artificial Opening Endoscopic, Diagnostic (ICD-10-PCS; 2018-06-02)
PROC: 0DBN8ZX Excision of Sigmoid Colon, Via Natural or Artificial Opening Endoscopic, Diagnostic (ICD-10-PCS; 2018-06-02)
PROC: 0DBP8ZX Excision of Rectum, Via Natural or Artificial Opening Endoscopic, Diagnostic (ICD-10-PCS; 2018-06-02)
DX: D12.5 Benign neoplasm of sigmoid colon (principal); K63.5 Polyp of colon; K62.1 Rectal polyp; K52.9 Noninfective gastroenteritis and colitis, unspecified; Z79.899 Other long term (current) drug therapy; Z88.8 Allergy status to other drugs, medicaments and biological substances
CPT/HCPCS: 88305; J2250; J3010

== ENCOUNTER 2020-12-05 15:09 | Outpatient (CLI) | payer MEDICARE | END 2020-12-05 15:10 | disposition home or self-care (01) | LOC: BICMAMMO 15:09 | PROVIDERS: ATTEND Family Medicine | DX: Z12.31 Encounter for screening mammogram for malignant neoplasm of breast (principal); N64.89 Other specified disorders of breast | CPT/HCPCS: 77063; 77067 ==

== ENCOUNTER 2020-12-11 14:22 | Outpatient (CLI) | payer MEDICARE | END 2020-12-11 14:23 | disposition home or self-care (01) | LOC: BICMAMMO 14:22 | PROVIDERS: ATTEND Family Medicine | DX: N64.89 Other specified disorders of breast (principal) | CPT/HCPCS: 77065; G0279 ==